=== PATIENT | female | born 1970 | race Caucasian/White ===

== ENCOUNTER 2016-07-11 08:36 | Emergency (ER) | payer SELFPAY ==
[~2016-07-11] VITALS: Ht 157.5 cm; Wt 61.0 kg
[~2016-07-11 08:36] MED LIST: CYCL5TAB PO; INDO25CA PO
[2016-07-11 08:38] VITALS: BP 104/76; PULSE 60; RESP 16; TEMP 98.1; O2SAT 99
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
[2016-07-11] MEDS ORDERED: SODIUM CHLORIDE 0.9% FLUSH 10 ML FLUSH IV FLUSH PRN (09:00)
[2016-07-11] MEDS ORDERED: ONDANSETRON HCL 4 MG/2 ML VIAL IVP ONE (09:00)
[2016-07-11] MEDS ORDERED: KETOROLAC TROMETHAMINE 30 MG/ML (IVP) VIAL IVP ONE (09:00)
[2016-07-11 09:03] LABS: AUTOMATED NEUTROPHIL # 3.9 TH/MM3 (1.8-7.7); BASOPHIL % 0.5 % (0.0-2.0); EOSINOPHIL % 0.8 % (0.0-4.0); HEMATOCRIT 40.1 % (35.0-46.0); HEMO FLAGS DIFF FINAL; LYMPH % 24.5 % (9.0-44.0); LYMPHOCYTE # 1.5 TH/MM3 (1.0-4.8); MEAN CELL VOLUME 91.7 FL (80.0-100.0); MEAN CORPUSCULAR HEMOGLOBIN 30.5 PG (27.0-34.0); MEAN CORPUSCULAR HGB CONC 33.3 % (32.0-36.0); MONO % 9.4 % (0.0-8.0); NEUT % 64.8 % (16.0-70.0); PLATELET COUNT 268 TH/MM3 (150-450); RED BLOOD COUNT 4.37 MIL/MM3 (4.00-5.30); RED CELL DISTRIBUTION WIDTH 13.6 % (11.6-17.2)
[2016-07-11 09:10] LABS: CHLORIDE 105 MEQ/L (98-107); POTASSIUM 3.4 MEQ/L (3.5-5.1); SODIUM (NA) 141 MEQ/L (136-145)
[2016-07-11 09:15] LABS: ANION GAP 6 MEQ/L (5-15); BICARBONATE 29.6 MEQ/L (21.0-32.0); BLOOD UREA NITROGEN 10 MG/DL (7-18)
[2016-07-11 09:17] LABS: BLOOD, URINE NEG (NEG); GLUCOSE,URINE NEG (NEG); KETONE, URINE NEG (NEG); PH, URINE 7.5 (5.0-8.5)
[2016-07-11 09:17] LABS: ALT (GPT) 17 U/L (10-53)
[2016-07-11 09:18] LABS: AST (GOT) 16 U/L (15-37); GLOMERULAR FILTRATION RATE 84 ML/MIN (>89)
[2016-07-11 09:19] LABS: TOTAL BILIRUBIN ADULT 0.5 MG/DL (0.2-1.0)
[2016-07-11 09:20] LABS: NITRITE,URINE POS (NEG)
[2016-07-11 09:21] LABS: ALKALINE PHOSPHATASE 80 U/L (45-117)
[2016-07-11 09:22] LABS: METHOD OF COLLECTION CLEAN CATCH; URINE COLOR YELLOW (YELLW/STRAW)
[2016-07-11 09:23] LABS: BACTERIA, URINE MANY /hpf; COMMENT (UR) CULTURE INDICATED; CULTURE IF INDICATED CULTURE INDICATED; RBC, URINE 0-3 /hpf (0-3); WBC, URINE 0-2 /hpf (0-5)
--- NOTE | 2016-07-11 09:39 | RADHPO ---
EXAM DATE/TIME: 07/11/2016 09:23 [place] COMPARISON: No previous studies available for comparison. INDICATIONS : Left side and middle abdomen pain, nausea. MEDICAL HISTORY : None. SURGICAL HISTORY : Appendectomy. ENCOUNTER: Initial ACUITY: 3 days PAIN SCORE: 10/10 LOCATION: Left middle abdomen FINDINGS: Intestinal gas pattern is nonspecific and benign. There are phleboliths noted over the pelvis. No sarah picious calcifications. This suggest abdominal mass or visceromegaly. Regional skeleton is intact. CONCLUSION: Nonspecific, benign abdomen Baltazar Mccarty MD on July 11, 2016 at 9:36 Board Certified Radiologist. This report was verified electronically.
[2016-07-11] MEDS ORDERED: ZOFR4TAB PO (10:09)
[2016-07-11] MEDS ORDERED: TRAM50TA PO (10:09)
[2016-07-11 10:46] VITALS: BP 132/74
== END 2016-07-11 10:47 | disposition home or self-care (01) ==
LOC: PHED 08:36
DX: R10.12 Left upper quadrant pain (principal); E78.00 Pure hypercholesterolemia, unspecified
CPT/HCPCS: 74020; 80053; 81001; 83690; 84703; 85025; 87077; 87086; 87186; 96374; 96375; 99284; J1885; J2405